=== PATIENT | male | born 1995 | race African-American/Black ===

== ENCOUNTER 2017-10-02 11:06 | Emergency (ER) | payer BC ==
[~2017-10-02] VITALS: Ht 185.4 cm; Wt 93.0 kg
[2017-10-02] MEDS ORDERED: IBUPROFEN 200 MG TABLET PO ONE (12:00)
[2017-10-02] MEDS ORDERED: ACETAMINOPHEN 325 MG TABLET PO ONE (12:00)
[2017-10-02] MEDS ORDERED: IBUPROFEN 600 MG TABLET ONE (12:43)
[2017-10-02] MEDS ORDERED: ACETAMINOPHEN ES 500 MG TABLET ONE (12:44)
--- NOTE | 2017-10-02 13:19 | NUR ---
Patient discharged to home in stable conditon. Written and verbal after care instructions given. Patient verbalizes understanding of instructions.
== END 2017-10-02 13:20 | disposition home or self-care (01) ==
LOC: ER 11:10
DX: S39.012A Strain of muscle, fascia and tendon of lower back, initial encounter (principal); J45.909 Unspecified asthma, uncomplicated; V43.52XA Car driver injured in collision with other type car in traffic accident, initial encounter; Y93.89 Activity, other specified; Y92.410 Unspecified street and highway as the place of occurrence of the external cause; Y99.8 Other external cause status
CPT/HCPCS: 71046; 72100; A4663

== ENCOUNTER 2017-10-28 14:27 | Emergency (ER) | payer BC ==
[~2017-10-28] VITALS: Ht 185.4 cm; Wt 101.2 kg
--- NOTE | 2017-10-28 14:45 | NUR ---
DR OLIVERA AT THE BEDSIDE FOR EVAL AND EXAM.
--- NOTE | 2017-10-28 14:50 | NUR ---
Patient discharged to home in stable conditon. Written and verbal after care instructions given. Patient verbalizes understanding of instructions.
[2017-10-28 14:51] VITALS: BP 119/64
== END 2017-10-28 14:51 | disposition home or self-care (01) ==
LOC: ER 14:27
DX: J06.9 Acute upper respiratory infection, unspecified (principal); J45.909 Unspecified asthma, uncomplicated
CPT/HCPCS: 99283; A4663

== ENCOUNTER 2017-12-15 09:58 | Emergency (ER) | payer BC ==
[~2017-12-15] VITALS: Ht 185.4 cm; Wt 101.2 kg
--- NOTE | 2017-12-15 10:44 | NUR ---
Patient discharged to home in stable conditon. Written and verbal after care instructions given. Patient verbalizes understanding of instructions.pt wealks in steady gait, breathing normally, no sign of distress.
== END 2017-12-15 10:45 | disposition home or self-care (01) ==
LOC: ER 09:58
DX: T58.91XA Toxic effect of carbon monoxide from unspecified source, accidental (unintentional), initial encounter (principal); J45.909 Unspecified asthma, uncomplicated; Y92.89 Other specified places as the place of occurrence of the external cause
CPT/HCPCS: A4663

== ENCOUNTER 2023-03-13 08:01 | Emergency (ER) | payer BC, OTHER | END 2023-03-13 08:16 | disposition left against medical advice (07) | LOC: ER 08:01 | DX: Z53.21 Procedure and treatment not carried out due to patient leaving prior to being seen by health care provider (principal) ==

== ENCOUNTER 2025-02-28 06:27 | Emergency (ER) | payer OTHER ==
[~2025-02-28] VITALS: Ht 185.4 cm; Wt 81.6 kg
[2025-02-28 06:59] LABS: BASOPHILS % (AUTO) 0.6 % (0.0-2.0); EOSINOPHILS # (AUTO) 0.5 K/uL (0.0-0.7); EOSINOPHILS % (AUTO) 9.1 % (0.0-7.0); HEMATOCRIT 42.9 % (36.7-47.1); HEMOGLOBIN 15.1 g/dL (12.5-16.3); LYMPHOCYTES # (AUTO) 2.6 K/uL (0.8-4.8); LYMPHOCYTES % (AUTO) 51.3 % (20.5-51.5); MEAN CORPUSCULAR HEMOGLOBIN 31.7 uug (23.8-33.4); MEAN CORPUSCULAR HGB CONC 35 g/dL (32.5-36.3); MEAN CORPUSCULAR VOLUME 90.2 fL (73.0-96.2); MONOCYTES # (AUTO) 0.5 K/uL (0.1-1.30); MONOCYTES % (AUTO) 9.6 % (0.0-11.0); NEUTROPHILS # (AUTO) 1.5 K/uL (1.8-8.9); NEUTROPHILS % (AUTO) 29.4 % (38.5-71.5); PLATELET COUNT (AUTO) 213 K/uL (152-348); RED BLOOD CELL COUNT(AUTO) 4.76 MIL/uL (4.06-5.63); RED CELL DISTRIBUTION WIDTH 12.3 % (12.1-16.2)
[2025-02-28 07:06] LABS: DIFFERENTIAL COMMENT 1
[2025-02-28] MEDS: IV NORMAL SALINE 1000 ML BAG IV ONE (07:10)
[2025-02-28 07:17] LABS: CALCIUM 9.2 mg/dL (8.5-10.1); CARBON DIOXIDE 27 mmol/L (21-32); CHLORIDE 102 mmol/L (98-107); CREATININE 1.1 mg/dL (0.6-1.3); GLUCOSE 112 mg/dL (74-106); POTASSIUM 3.6 mmol/L (3.5-5.1); SODIUM SERUM 139 mmol/L (136-145); UREA NITROGEN, BLOOD 12 mg/dL (7-18)
[2025-02-28 07:20] LABS: ETHANOL < 3 MG/DL (0-10)
[2025-02-28 08:00] LABS: *AMPHETAMINE, URINE NEGATIVE (NEGATIVE); *BARBITURATE, URINE NEGATIVE (NEGATIVE); *BENZODIAZEPINE, URINE NEGATIVE (NEGATIVE); *CANNABINOID, URINE NEGATIVE (NEGATIVE); *COCCAINE, URINE NEGATIVE (NEGATIVE); *OPIATE, URINE NEGATIVE (NEGATIVE); *PHENCYCLIDINE SCREEN,URINE NEGATIVE (NEGATIVE); FENTANYL, URINE NEGATIVE (NEGATIVE)
[2025-02-28 08:22] VITALS: BP 139/72; O2SAT 99
== END 2025-02-28 08:23 | disposition home or self-care (01) ==
LOC: ER 06:27
DX: R00.2 Palpitations (principal); R00.0 Tachycardia, unspecified; R07.9 Chest pain, unspecified; R42 Dizziness and giddiness; R55 Syncope and collapse; J45.909 Unspecified asthma, uncomplicated
CPT/HCPCS: 80048; 82962; 84443; 85025; 84484; 36415; 71045; 93005; 99285; 96360; 80320; 80307; J7040; A4606; A4663; G0480